=== PATIENT | male | born 1975 | race Caucasian/White ===

== ENCOUNTER 2016-04-20 17:56 | Emergency (ER) | payer OTHER ==
[~2016-04-20] VITALS: Ht 190.5 cm; Wt 111.8 kg
[~2016-04-20 17:56] MED LIST: AMOXICILLIN500 MG PO; AMOXICILLIN875 MG PO; FLEXERIL10 MG PO; IBUPROFEN800 MG PO; MOBIC15 MG PO; MOTRIN IB200 MG PO; MOTRIN600 MG PO; MOTRIN800 MG PO; NAPROSYN500 MG PO; NORCO 5/3251 TABLET PO; PEN-VEE K,VEET500 MG PO; PERCOCET 5/31 TABLET PO; VICODIN 5-3001 EACH PO
[2016-04-20] MEDS ORDERED: PERCOCET 5/31 TABLET PO (19:12)
[2016-04-20] MEDS ORDERED: NAPROSYN500 MG PO (19:12)
[2016-04-20 19:43] VITALS: BP 145/91
== END 2016-04-20 19:45 | disposition home or self-care (01) ==
LOC: EME 17:56 → RME 17:56
DX: S83.92XA Sprain of unspecified site of left knee, initial encounter (principal); X50.0XXA Overexertion from strenuous movement or load, initial encounter
CPT/HCPCS: 99281; 99284

== ENCOUNTER 2016-07-31 01:47 | Emergency (ER) | payer OTHER ==
[~2016-07-31] VITALS: Ht 190.5 cm; Wt 106.5 kg
[2016-07-31] MEDS ORDERED: PERCOCET 5/31 TABLET PO (03:46)
[2016-07-31] MEDS ORDERED: MOTRIN800 MG PO (03:46)
[2016-07-31] MEDS ORDERED: AUGMENTIN875 MG PO (03:46)
[2016-07-31 04:00] VITALS: BP 136/105
== END 2016-07-31 04:25 | disposition home or self-care (01) ==
LOC: EME 01:47
DX: K02.9 Dental caries, unspecified (principal); K08.89 Other specified disorders of teeth and supporting structures; F17.200 Nicotine dependence, unspecified, uncomplicated; Z88.6 Allergy status to analgesic agent
CPT/HCPCS: 99281; 99284

== ENCOUNTER 2016-08-31 22:47 | Emergency (ER) | payer OTHER ==
[~2016-08-31] VITALS: Ht 190.5 cm; Wt 108.7 kg
[~2016-08-31 22:47] MED LIST changes: +AUGMENTIN875 MG PO
[2016-08-31 22:52] VITALS: BP 127/86
== END 2016-09-01 02:13 | disposition home or self-care (01) ==
LOC: EXP 22:47 → EME 22:47 → EXP 09-01 02:13
PROC: 08C8XZZ Extirpation of Matter from Right Cornea, External Approach (ICD-10-PCS; principal; 2016-08-31)
DX: T15.01XA Foreign body in cornea, right eye, initial encounter (principal); X58.XXXA Exposure to other specified factors, initial encounter; Y93.89 Activity, other specified; F17.200 Nicotine dependence, unspecified, uncomplicated
CPT/HCPCS: 99281; 99284

== ENCOUNTER 2017-11-21 14:35 | Emergency (ER) | payer OTHER ==
[~2017-11-21] VITALS: Ht 190.5 cm; Wt 132.4 kg
[2017-11-21] MEDS ORDERED: NAPROSYN500 MG PO (16:26)
[2017-11-21] MEDS ORDERED: FLEXERIL10 MG PO (16:27)
[2017-11-21 16:58] VITALS: BP 130/85
== END 2017-11-21 16:59 | disposition home or self-care (01) ==
LOC: EME 14:35
DX: S43.401A Unspecified sprain of right shoulder joint, initial encounter (principal); X50.9XXA Other and unspecified overexertion or strenuous movements or postures, initial encounter; F17.200 Nicotine dependence, unspecified, uncomplicated
CPT/HCPCS: 73030; 99281; 99283; J1885